=== PATIENT | male | born 2000 | race Caucasian/White ===

== ENCOUNTER 2020-03-30 20:09 | Emergency (ER) | payer SELFPAY ==
--- NOTE | 2020-03-30 20:53 | PDOC ---
Rapid Medical Evaluation Time Seen by Provider: 03/30/20 20:39 Medical Evaluation: 03/30/20 20:51 I have performed a brief in-person evaluation of this patient The patient presents with a chief complaint of: R hand laceration after accidentally striking it against glass tonight, unsure tetanus status Pertinent physical exam findings:~2 cm lac over dorsum of R metacarpals I have ordered the following:hand XR, tetanus The patient will proceed to the ED for further evaluation Discharge Disposition - Diagnosis Hand laceration Qualifiers: Encounter type: initial encounter Foreign body presence: unspecified Laterality: right Qualified Code(s): S61.411A - Laceration without foreign body of right hand, initial encounter - Discharge Dispostion Disposition: HOME Condition at time of disposition: Stable - Prescriptions Prescriptions: Cephalexin [Keflex] 500 mg PO QID #28 capsule - Referrals Referrals: Alcides Negrete MD [Staff Physician] - - Patient Instructions Additional Instructions: Out patient [facility] hand clinic number is [phone] [facility] [place] You must follow-up within 48 hours. You must follow-up with either hand surgery orthopedic hand surgery the number was given to you above or [facility] hand clinic the numbers given to you below. She cannot follow-up you need a wound check in 48 hours. Please take the antibiotics as directed. The antibiotics prevent infection. You were given an initial dose in the emergency room we do not have to start the bottle of antibiotics till tomorrow. You may take Tylenol for pain. For now avoid Motrin as your problem is surgical and requires intervention Motrin is contraindicated at this time. Return to the emergency room if worsened for worsening symptoms at any time and do not fail to follow-up with orthopedic surgery otherwise will lose function of your hand. You may also develop an infection. This is a deep wound and requires close monitoring. - Post Discharge Activity
[2020-03-30] MEDS ORDERED: DIPHTH,PERTUSS(ACELL),TET 0.5 ML DISP.SYRIN IM ONE ×2 (20:54→21:52)
[2020-03-30 20:56] VITALS: BP 144/82; PULSE 85; TEMP 98.3; BMI 25.1
[2020-03-30] MEDS ORDERED: CEPHALEXIN MONOHYDRATE 500 MG CAPSULE (UD) PO ONE (22:09)
--- NOTE | 2020-03-30 22:14 | PDOC ---
History of Present Illness - General Chief Complaint: Laceration Stated Complaint: LACERATION RT ARM Time Seen by Provider: 03/30/20 20:39 - History of Present Illness Initial Comments: 03/30/20 22:11 19-year-old male with no comorbidities not current on tetanus presents for evaluation of right hand laceration after he states he fell on a piece of glass at home. Past History - Medical History Allergies/Adverse Reactions: Allergies Allergy/AdvReac Type Severity Reaction Status Date / Time No Known Allergies Allergy Verified 03/30/20 21:50 Home Medications: Ambulatory Orders Cephalexin [Keflex] 500 mg PO QID #28 capsule 03/30/20 COPD: No - Psycho-Social/Smoking History Smoking History: Never smoked - Substance Abuse Hx (Audit-C & DAST Scrn) How often the patient has a drink containing alcohol: Never Score: In Men: 4 or > Positive; In Women: 3 or > Positive: 0 Screen Result (Pos requires Nsg. Audit-10AR): Negative Review of Systems - Review of Systems Able to Perform ROS?: Yes Musculoskeletal: Yes: See HPI *Physical Exam - Vital Signs Last Vital Signs Temp Pulse Resp BP Pulse Ox 98.3 F 85 20 144/82 100 03/30/20 20:52 03/30/20 20:52 03/30/20 20:52 03/30/20 20:52 03/30/20 20:52 - Physical Exam 03/30/20 22:11 There is about a 5 cm laceration extending from the skin overlying the third metacarpal ulnarly to the fifth metacarpal extensor tendon function is absent and the fourth and fifth fingers of the right hand. The laceration is on the dorsum of the right hand. ED Treatment Course - Medications Given in the ED: ED Medications Discontinued Medications Generic Name Dose Route Start Last Admin Trade Name Freq PRN Reason Stop Dose Admin Diphtheria/Tetanus/Acell Pertussis 0.5 ml 03/30/20 20:54 03/30/20 21:52 Boostrix - IM 03/30/20 20:55 0.5 ml .ONCE ONE Administration Medical Decision Making - Medical Decision Making 03/30/20 22:12 The hand was aseptically prepped anesthetized with 10 cc of 1% lidocaine without epinephrine copiously irrigated and explored to its base without identification of a foreign body. Edges were approximated loosely using 3-0 nylon. Bacitracin dressing was placed. The patient was placed in an extension splint extending the third fourth and fifth fingers of the hand. Tetanus was updated orthopedic hand surgery follow-up was stressed. This patient requires surgical intervention he is aware that and understands the importance of follow-up. I have reviewed the pathophysiology with the patient. They are in agreement with the treatment plan all questions were answered to their satisfaction. Understanding for follow-up without fail was also conveyed to the patient. Again they are in agreement. Discharge - Discharge Information Problems reviewed: Yes Clinical Impression/Diagnosis: Hand laceration Qualifiers: Encounter type: initial encounter Foreign body presence: unspecified Latera lity: right Qualified Code(s): S61.411A - Laceration without foreign body of right hand, initial encounter Condition: Stable Disposition: HOME - Admission No - Additional Discharge Information Prescriptions: Cephalexin [Keflex] 500 mg PO QID #28 capsule - Follow up/Referral Referrals: Alcides Negrete MD [Staff Physician] - - Patient Discharge Instructions Additional Instructions: Out patient [facility] hand clinic number is [phone] [facility] [place] You must follow-up within 48 hours. You must follow-up with either hand surgery orthopedic hand surgery the number was given to you above or [facility] hand clinic the numbers given to you below. She cannot follow-up you need a wound check in 48 hours. Please take the antibiotics as directed. The antibiotics prevent infection. You were given an initial dose in the emergency room we do not have to start the bottle of antibiotics till tomorrow. You may take Tylenol for pain. For now avoid Motrin as your problem is surgical and requires intervention Motrin is contraindicated at this time. Return to the emergency room if worsened for worsening symptoms at any time and do not fail to follow-up with orthopedic surgery otherwise will lose function of your hand. You may also develop an infection. This is a deep wound and requires close monitoring. - Post Discharge Activity
[2020-03-30] MEDS ORDERED: CEPHALEXIN MONOHYDRATE 500 MG CAPSULE (UD) ONE (22:22)
== END 2020-03-30 22:29 | disposition home or self-care (01) ==
LOC: JERFT 20:09 → JER 20:09 → JERFT 22:29
PROC: 3E0234Z Introduction of Serum, Toxoid and Vaccine into Muscle, Percutaneous Approach (ICD-10-PCS; principal; 2020-03-30)
DX: S61.411A Laceration without foreign body of right hand, initial encounter (principal)
CPT/HCPCS: 73130-TC-RT-FY; 90715; 99284-25